=== PATIENT | female | born 1990 | race Caucasian/White ===

== ENCOUNTER 2019-12-21 19:12 | Emergency (ER) | payer OTHER, SELFPAY ==
[2019-12-21 19:53] VITALS: BP 117/87; PULSE 95; RESP 16; TEMP 36.8; O2SAT 100
--- NOTE | 2019-12-21 20:47 | ED.URI ---
HPI - URI/Sore Throat General Chief Complaint: Upper Respiratory Infection Stated Complaint: aches chills itchy throat Time Seen by Provider: 12/21/19 20:47 Source: patient and family Mode of arrival: ambulatory Limitations: no limitations History of Present Illness HPI Narrative: 29-year-old female accompanied by presents to express care with complaints of 2-day history of fevers, chills, sweats, with cough, also some sore throat, nasal congestion and drainage, and nausea with no emesis. Patient states she did take a flu shot this year had known exposure to flu from [id number] and diagnosed with flu also. Patient states that she did have a flu shot this year,has been taking Advil and Nyquil for her symptoms. Patient denies any shortness of breath or any wheezing, lungs clear to auscultation with SAO2 100% on room air MD elicited complaint: fever and cough Onset (ago): day(s) (2) Severity: moderate Pain scale (0-10): 5 Description of mucous: clear Able to tolerate fluids by mouth: Yes Exacerbating factors: exertion and deep breaths Relieving factors: nothing Context: sick contacts Associated symptoms: fever, chills, myalgias, rhinorrhea, nasal congestion, cough and nausea Treatments prior to arrival: ibuprofen and other (Nyquil) Related Data Home Medications Medication Instructions Recorded Confirmed escitalopram oxalate [Lexapro] 10 mg PO DAILY 12/21/19 12/24/19 norethindrone ac-eth estradiol 1 tablet PO DAILY 12/21/19 12/24/19 [Loestrin 11/27 (21)] Allergies Allergy/AdvReac Type Severity Reaction Status Date / Time No Known Allergies Allergy Verified 12/24/19 17:46 Review of Systems Review of Systems: Narrative: CONSTITUTIONAL: Positive fever, chills, or sweats. EYES: Denies visual changes, redness, or discharge. ENT: positive rhinorrhea, congestion, sore throat, or otalgia. CARDIOVASCULAR: Denies chest pain, palpitations, or edema. RESPIRATORY:positive cough denies dyspnea. GASTROINTESTINAL: Denies abdominal pain,positive nausea, no vomiting, or diarrhea. GENITOURINARY: Denies dysuria or hematuria. SKIN: Denies rash or itching. MUSCULOSKELETAL: Denies back pain, joint pain, or myalgia. NEUROLOGIC: Denies headache, numbness, or weakness. PSYCHIATRIC: Denies anxiety or depression. All systems reviewed & are unremarkable except as noted in HPI and below PMFSH Past Medical History Medical History (Updated 12/25/19 @ 11:22 by Rayne Thomas NP) Anxiety and depression Migraines Surgical History Surgical History (Updated 12/25/19 @ 11:22 by Rayne Thomas NP) [place] teeth extracted Social History Social History (Updated 12/25/19 @ 11:22 by Rayne Thomas NP) Smoking status: Never smoker Alcohol intake: never Substance use: never Living arrangements: with family Gender identity (if verbalized by the patient): Female Comments At time of signature, agree with nursing past medical, social history. There is no relevant family history pertinent to the presenting complaint Exam Narrative: Exam Narrative: GENERAL: illl-appearing, well-nourished, and in no acute distress. HEAD: Normocephalic, atraumatic. EYES: PERRLA and EOMI. ENT: Nares red cler rhinorrhea no epistaxis. Mucous membranes moist.TM's normal with good light reflex. throat mild redness with no tonsil enlargement lesions or exudte, post nasal drainage noted to back of throat NECK: Supple.no lymphadenopathy CHEST: Clear to auscultation. No respiratory distress.cough SAO2 100% on room air HEART: Regular rate and rhythm. No murmur heard. Normal peripheral pulses. ABDOMEN: Soft, nontender, nondistended, normal active bowel sounds.nausea with no emesis or diarrhea EXTREMITIES: Normal range of motion. No edema. SKIN: Warm, dry, no rash. NEURO: No focal deficits. Alert and oriented x3. Course Vital Signs Vital signs: Vital Signs Temperature 36.8 C 12/21/19 19:53 Pulse Rate 95 12/21/19 19:53 Respirator
== END 2019-12-21 21:00 | disposition home or self-care (01) ==
PROVIDERS: Emergency Provider Registered Nurse
DX: J10.1 Influenza due to other identified influenza virus with other respiratory manifestations (principal); R11.0 Nausea; F41.9 Anxiety disorder, unspecified; F32.9 Major depressive disorder, single episode, unspecified
CPT/HCPCS: 87804; 99203; G0463

== ENCOUNTER 2019-12-24 17:25 | Emergency (ER) | payer OTHER, SELFPAY ==
[2019-12-24 17:36] VITALS: BP 134/89; PULSE 100; RESP 16; TEMP 37.1; O2SAT 100
--- NOTE | 2019-12-24 17:59 | ED.SKABFB ---
HPI - Skin/Abscess/Foreign Bdy General Chief complaint: Skin/Abscess/Foreign Body Stated complaint: red bump on leg Time Seen by Provider: 12/24/19 17:59 Source: patient and RN notes reviewed Mode of arrival: ambulatory Limitations: no limitations History of Present Illness HPI narrative: 29 year old female who presents to [facility] care with complaints of red lesion to the right lower leg inner aspect just below knee with surrounding redness and tenderness since last night. Inner lesion dark red 0.25 cm diameter with darkened center with surrounding redness and swelling total measurement 4cmX 4cm. Patient states that she has some discomfort to area, denies present fevers chills or sweats. Patient was seen recently for influenza with symptoms resolving. MD complaint: lesion and other (surrounding redness) Onset (ago): day(s) (1 since last pm) Tetanus up to date: unsure Location: RLE Severity: mild Severity scale (1-10): 2 Quality: aching Pain Consistency: constant Relieving factors: none Exacerbating factors: palpation Context: none Associated symptoms: other (pain , redness and swelling surrounding lesion) Treatments prior to arrival: none Related Data Home Medications Medication Instructions Recorded Confirmed escitalopram oxalate [Lexapro] 10 mg PO DAILY 12/21/19 12/24/19 norethindrone ac-eth estradiol 1 tablet PO DAILY 12/21/19 12/24/19 [Loestrin 11/27 (21)] Allergies Allergy/AdvReac Type Severity Reaction Status Date / Time No Known Allergies Allergy Verified 12/24/19 17:46 Review of Systems Review of Systems: Narrative: CONSTITUTIONAL: Denies fever, chills, or sweats. EYES: Denies visual changes, redness, or discharge. ENT: positive rhinorrhea, congestion, no further sore throat, or otalgia. CARDIOVASCULAR: Denies chest pain, palpitations, or edema. RESPIRATORY: positive cough no dyspnea.recently diagnosed with influenza GASTROINTESTINAL: Denies abdominal pain, nausea, vomiting, or diarrhea. GENITOURINARY: Denies dysuria or hematuria. SKIN:red lesion to right lower leg with surrounding redness and swelling, no drainage. MUSCULOSKELETAL: Denies back pain, joint pain, or myalgia. NEUROLOGIC: Denies headache, numbness, or weakness. PSYCHIATRIC: history of anxiety or depression. All systems reviewed & are unremarkable except as noted in HPI and below PMFSH Past Medical History Medical History (Updated 12/30/19 @ 10:34 by Rayne Thomas NP) Anxiety and depression Migraines Surgical History Surgical History (Updated 12/25/19 @ 11:22 by Rayne Thomas NP) [place] teeth extracted Social History Social History (Updated 12/25/19 @ 11:22 by Rayne Thomas NP) Smoking status: Never smoker Alcohol intake: never Substance use: never Living arrangements: with family Gender identity (if verbalized by the patient): Female Comments At time of signature, agree with nursing past medical,, social history. There is no relevant family history pertinent to the presenting complaint Exam Narrative: Exam Narrative: GENERAL: Well-appearing, well-nourished, and in no acute distress. HEAD: Normocephalic, atraumatic. EYES: PERRLA and EOMI. ENT: Nares red with clear rhinorrhea no epistaxis. Mucous membranes moist.TM's normal with good light reflex, throat pink with no lesions or tonsil swelling. NECK: Supple.no lymphadenopathy CHEST: Clear to auscultation. No respiratory distress.cough SAO2 100% on room air HEART: Regular rate and rhythm. No murmur heard. Normal peripheral pulses. ABDOMEN: Soft, nontender, nondistended, normal active bowel sounds. EXTREMITIES: Normal range of motion. No edema. SKIN: Warm, dry,0.25 dark red lesion center darker with no drainage, surrounding redness and swelling with warmth total 4cm X 4cm NEURO: No focal deficits. Alert and oriented x3. Course Vital Signs Vital signs: Vital Signs Temperature 37.1 C 12/24/19 17:36 Pulse Rate 100 12/24/19 17:36 Respiratory Ra
== END 2019-12-24 18:25 | disposition home or self-care (01) ==
PROVIDERS: Emergency Provider Registered Nurse
DX: S80.861A Insect bite (nonvenomous), right lower leg, initial encounter (principal); W57.XXXA Bitten or stung by nonvenomous insect and other nonvenomous arthropods, initial encounter; F41.9 Anxiety disorder, unspecified; F32.9 Major depressive disorder, single episode, unspecified
CPT/HCPCS: 99213; G0463